=== PATIENT | female | born 1965 | race Caucasian/White ===

== ENCOUNTER → 2016-07-26 | Outpatient (REF) | payer BC, SELFPAY | LOC: M LAB REF 10:01 | PROVIDERS: ATTEND Physician Assistant | DX: J02.9 Acute pharyngitis, unspecified (principal) ==

== ENCOUNTER → 2018-07-26 | Outpatient (REF) | payer OTHER ==
[2018-07-26 12:32] LABS: FREE T3 4.5 PG/ML (2.2-4.0); FREE T4 0.78 NG/DL (0.76-1.46); THYROID STIMULATING HORMONE 1.65 uIU/ML (0.358-3.740)
== END ==
LOC: M SFHCCLAY 08:46
PROVIDERS: ATTEND Family Medicine
DX: F32.1 Major depressive disorder, single episode, moderate (principal); Z86.39 Personal history of other endocrine, nutritional and metabolic disease

== ENCOUNTER → 2020-08-31 | Outpatient (REF) | payer OTHER ==
[2020-08-31 13:23] LABS: BASO % 0.7 % (0.0-1.0); EOS # 0.1 10^3/uL (0.0-0.5); EOS % 2.2 % (0.0-3.0); LYMPH # 1.6 10^3/uL (1.5-5.0); LYMPH % 26.4 % (24.0-44.0); MEAN CORPUSCULAR HEMOGLOBIN 26.1 pg (27.0-33.0); MEAN CORPUSCULAR HGB CONC 31.7 g/dl (32.0-36.5); MEAN CORPUSCULAR VOLUME 82.2 fl (80.0-96.0); MONO # 0.5 10^3/uL (0.0-0.8); MONO % 9.2 % (2.0-8.0); NEUTROPHILS # 3.6 10^3/uL (1.5-8.5); NEUTROPHILS % 61.3 % (36.0-66.0); PLATELET COUNT, AUTOMATED 393 10^3/uL (150-450); RED BLOOD COUNT 4.99 10^6/uL (4.00-5.40); WHITE BLOOD COUNT 5.9 10^3/uL (4.0-10.0)
[2020-08-31 14:06] LABS: C REACTIVE PROTEIN QUANTITATIV 0.38 MG/DL (0.00-0.30); CHOLESTEROL RISK RATIO 5.347 (<5); FREE T3 3.2 PG/ML (2.2-4.0); FREE T4 0.92 NG/DL (0.76-1.46); THYROID STIMULATING HORMONE 0.291 uIU/ML (0.358-3.740)
[2020-08-31 14:07] LABS: TOTAL 25(OH) VITAMIN D 23.4 NG/ML (30.0-100.0)
[2020-08-31 14:08] LABS: THYROID PEROXIDASE ANTIBODY 41.4 U/ML (<60.0)
[2020-08-31 14:09] LABS: FOLATE 13.6 NG/ML (>5.4)
== END ==
LOC: M LABDRAWC 12:31
PROVIDERS: ATTEND Naturopath
DX: E78.5 Hyperlipidemia, unspecified (principal); R53.83 Other fatigue; E28.1 Androgen excess; G25.81 Restless legs syndrome; E55.9 Vitamin D deficiency, unspecified; E06.3 Autoimmune thyroiditis; I10 Essential (primary) hypertension; R79.82 Elevated C-reactive protein (CRP)